=== PATIENT | female | born 1935 | race Caucasian/White ===

== ENCOUNTER 2025-01-19 08:38 | Observation (INO) | payer OTHER ==
[2025-01-19] MEDS ORDERED: ACETAMINOPHEN INJECTION 100 ML ONE (09:14)
[2025-01-19] MEDS: ACETAMINOPHEN 1000 MG/100 ML BAG IVPB ONE (09:20)
[2025-01-19 09:33] LABS: BASO % 0.6 % (0-2.0); EOS % 0.8 % (0-4.5); HEMATOCRIT 30.3 % (32.4-45.2); HEMOGLOBIN 9.8 GM/dL (10.7-15.3); MCH 25.7 pg (25.7-33.7); MCHC 32.4 g/dl (32.0-36.0); MEAN CELL VOLUME 79.2 fl (80-96); MEAN PLT VOLUME 6.7 fl (7.5-11.1); MONO % 6.6 % (3.8-10.2); PLATELET COUNT 190 10^3/uL (134-434); RBC 3.83 M/mm3 (3.60-5.2); RDW 18.3 % (11.6-15.6); WHITE BLOOD COUNT 5.6 K/mm3 (4.0-10.0)
[2025-01-19 09:41] LABS: INR 1.11 (0.83-1.09); PROTHROMBIN TIME (PATIENT) 12.2 SEC (9.7-13.0)
[2025-01-19 09:44] LABS: ACTIVATED PTT 34.8 SECONDS (25.2-36.5)
[2025-01-19 10:59] LABS: ALBUMIN 3.2 g/dl (3.4-5.0); CALCIUM 8.2 mg/dL (8.5-10.1); CREATININE 0.8 mg/dL (0.55-1.3); POTASSIUM 3.5 mmol/L (3.5-5.1)
[2025-01-19 11:04] LABS: BILIRUBIN,TOTAL 0.4 mg/dL (0.2-1); TOT PROT 6.2 g/dl (6.4-8.2)
[2025-01-19 11:09] LABS: EPI CELLS 3 /uL (0-25.1); HYALINE CASTS 0 /uL (0-3.1); PH,URINE 5.5 (5.0-8.0); URINE APPEARANCE CLEAR; URINE BACTERIA 44 /uL (0-1359); URINE BILIRUBIN NEGATIVE (NEGATIVE); URINE COLOR YELLOW; URINE GLUCOSE (UA) NEGATIVE (NEGATIVE); URINE KETONE NEGATIVE (NEGATIVE); URINE LEUK ESTERASE NEGATIVE (NEGATIVE); URINE NITRITE NEGATIVE (NEGATIVE); URINE PROTEIN 1+ (NEGATIVE); URINE RBC 6 /uL (0-23.9); URINE UROBILINOGEN 0.2 mg/dL (0.2-1.0); URINE WBC 8 /uL (0-25.8)
[2025-01-19] MEDS: METOPROLOL TARTRATE 25 MG TABLET (FP) PO ONE (17:08)
[2025-01-19] MEDS: LOSARTAN POTASSIUM 25 MG TABLET PO ONE (17:08)
[2025-01-19] MEDS: levETIRAcetam 250 MG TABLET PO ONE (17:32)
[2025-01-19] MEDS: SENNOSIDES 8.8 MG/5 ML SYRUP PO SCH (21:59)
[2025-01-19] MEDS: ACETAMINOPHEN 500 MG TABLET (FP) PO PRN (21:59)
[2025-01-19] MEDS: APIXABAN 2.5 MG TABLET PO SCH (21:59)
[2025-01-19] MEDS: POLYETHYLENE GLYCOL (HEALTHYLAX) 3350 17 GM PACKET PO SCH (21:59)
[2025-01-19] MEDS: MELATONIN 5 MG TABLETS PO SCH (21:59)
[2025-01-19] MEDS: ATORVASTATIN CA 10 MG TABLET (FP) PO SCH (21:59)
[2025-01-19] MEDS ORDERED: PATIENT'S OWN MEDICATION (NON-FORMULARY) (Cyclosporine [Restasis] 1 EACH Droperette) OP SCH (22:00)
[2025-01-19] MEDS: LIDOCAINE PATCH REMOVAL MC SCH (22:07)
[2025-01-20] MEDS ORDERED: PATIENT'S OWN MEDICATION (NON-FORMULARY) (Pilocarpine Hcl [Pilocarpine Hcl] 5 MG Tablet) PO SCH (07:00)
[2025-01-20 07:21] LABS: POTASSIUM 3.3 mmol/L (3.5-5.1)
[2025-01-20 07:24] LABS: CALCIUM 8.4 mg/dL (8.5-10.1)
[2025-01-20 07:25] LABS: BLOOD UREA NITROGEN 17.4 mg/dL (7-18); MAGNESIUM 1.7 mg/dL (1.8-2.4)
[2025-01-20 07:27] LABS: CREATININE 0.8 mg/dL (0.55-1.3); PHOSPHOROUS 3.8 mg/dL (2.5-4.9)
[2025-01-20] MEDS: MAGNESIUM SULFATE IN WATER 2 GM/50 ML IVPB IVPB ONE (09:20)
[2025-01-20] MEDS: MAGNESIUM 1GM/D5W 100ML - 100 ML IVPB IVPB ONE (09:21)
[2025-01-20] MEDS: MAGNESIUM 2GM/50ML STERILE WATER IVPB IVPB ONE (09:43)
[2025-01-20] MEDS: LIDOCAINE 4% PATCH TP SCH (09:43)
[2025-01-20] MEDS: POTASSIUM CHLORIDE ORAL LIQUID 20 MEQ/15 ML PO ONE (09:43)
[2025-01-20] MEDS: VITAMINS A AND D TOPICAL OINTMENT TP SCH (09:44)
[2025-01-20] MEDS: SERTRALINE HCL 50 MG TABLET (FP) PO SCH (09:44)
[2025-01-20] MEDS: FAMOTIDINE 20 MG TABLET PO SCH (09:44)
[2025-01-20] MEDS: THIAMINE 100 MG TABLET PO SCH (09:44)
[2025-01-20] MEDS: METOPROLOL TARTRATE 25 MG TABLET (FP) PO SCH (09:44)
[2025-01-20] MEDS: NYSTATIN POWDER 100,000 UNITS/GM - 15 GM TOPICAL POWDER TP SCH (09:44)
[2025-01-20] MEDS: levETIRAcetam 250 MG TABLET PO SCH (09:44)
[2025-01-20] MEDS: FOLIC ACID 1 MG TABLET (FP) PO SCH (09:44)
[2025-01-21 07:12] LABS: BASO % 0.4 % (0-2.0); EOS % 1.7 % (0-4.5); HEMATOCRIT 28.2 % (32.4-45.2); HEMOGLOBIN 9.1 GM/dL (10.7-15.3); LYMPH % 34.1 % (8-40); MCH 25.8 pg (25.7-33.7); MCHC 32.1 g/dl (32.0-36.0); MEAN CELL VOLUME 80.3 fl (80-96); MEAN PLT VOLUME 7.2 fl (7.5-11.1); MONO % 10.2 % (3.8-10.2); NEUT % 53.6 % (42.8-82.8); PLATELET COUNT 189 10^3/uL (134-434); RBC 3.51 M/mm3 (3.60-5.2); RDW 18.5 % (11.6-15.6); WHITE BLOOD COUNT 3.7 K/mm3 (4.0-10.0)
[2025-01-21 07:21] LABS: POTASSIUM 4.3 mmol/L (3.5-5.1)
[2025-01-21 07:22] LABS: CALCIUM 8.5 mg/dL (8.5-10.1)
[2025-01-21 07:23] LABS: BLOOD UREA NITROGEN 26.3 mg/dL (7-18)
[2025-01-21 07:26] LABS: CREATININE 0.8 mg/dL (0.55-1.3)
[2025-01-21] MEDS: POTASSIUM CHLORIDE TABS 20 MEQ TABLET.ER (FP) PO ONE (11:06)
[2025-01-21 11:34] LABS: MAGNESIUM 2.1 mg/dL (1.8-2.4)
[2025-01-21 11:38] LABS: PHOSPHOROUS 3.6 mg/dL (2.5-4.9)
[2025-01-21 22:16] VITALS: BMI 19.0
[2025-01-24 07:32] LABS: BASO % 0.4 % (0-2.0); EOS % 2.5 % (0-4.5); HEMOGLOBIN 9.7 GM/dL (10.7-15.3); LYMPH % 28.1 % (8-40); MCH 25.9 pg (25.7-33.7); MCHC 32.4 g/dl (32.0-36.0); MEAN PLT VOLUME 7.2 fl (7.5-11.1); MONO % 10.1 % (3.8-10.2); NEUT % 58.9 % (42.8-82.8); PLATELET COUNT 171 10^3/uL (134-434); RBC 3.75 M/mm3 (3.60-5.2); RDW 18.8 % (11.6-15.6); WHITE BLOOD COUNT 3.9 K/mm3 (4.0-10.0)
[2025-01-24 07:55] LABS: POTASSIUM 4.5 mmol/L (3.5-5.1)
[2025-01-24 08:13] LABS: ALBUMIN 2.8 g/dl (3.4-5.0); BLOOD UREA NITROGEN 23.3 mg/dL (7-18); CALCIUM 8.8 mg/dL (8.5-10.1)
[2025-01-24 08:16] LABS: CREATININE 0.8 mg/dL (0.55-1.3)
[2025-01-24 08:18] LABS: BILIRUBIN,TOTAL 0.7 mg/dL (0.2-1); TOT PROT 6.1 g/dl (6.4-8.2)
[2025-01-24] MEDS ORDERED: PATIENT'S OWN MEDICATION (NON-FORMULARY) (Pilocarpine Hcl [Pilocarpine Hcl] 5 MG) PO SCH (16:00)
[2025-01-24] MEDS: LIDOCAINE PATCH REMOVAL MC SCH (21:45)
[2025-01-24] MEDS: APIXABAN 2.5 MG TABLET PO SCH (21:46)
[2025-01-24] MEDS: METOPROLOL TARTRATE 25 MG TABLET (FP) PO SCH (21:46)
[2025-01-24] MEDS: ATORVASTATIN CA 10 MG TABLET (FP) PO SCH (21:46)
[2025-01-24] MEDS: MELATONIN 5 MG TABLETS PO SCH (21:47)
[2025-01-24] MEDS: POLYETHYLENE GLYCOL (HEALTHYLAX) 3350 17 GM PACKET PO SCH (21:47)
[2025-01-24] MEDS: SENNOSIDES 8.8 MG/5 ML SYRUP PO SCH (21:47)
[2025-01-24] MEDS: levETIRAcetam 250 MG TABLET PO SCH (21:47)
[2025-01-24] MEDS ORDERED: PATIENT'S OWN MEDICATION (NON-FORMULARY) (Cyclosporine [Restasis] 1 EACH) OP SCH (22:00)
[2025-01-24] MEDS ORDERED: LIDOCAINE PATCH REMOVAL MC SCH (22:00)
[2025-01-25] MEDS: ACETAMINOPHEN 500 MG TABLET (FP) PO PRN (07:04)
[2025-01-25] MEDS: FAMOTIDINE 20 MG TABLET PO SCH (09:58)
[2025-01-25] MEDS: THIAMINE 100 MG TABLET PO SCH (09:58)
[2025-01-25] MEDS: FOLIC ACID 1 MG TABLET (FP) PO SCH (09:58)
[2025-01-25] MEDS: SERTRALINE HCL 50 MG TABLET (FP) PO SCH (09:58)
[2025-01-25] MEDS: LIDOCAINE 4% PATCH TP SCH (09:59)
[2025-01-25] MEDS: NYSTATIN POWDER 100,000 UNITS/GM - 15 GM TOPICAL POWDER TP SCH (12:40)
[2025-01-25] MEDS: VITAMINS A AND D TOPICAL OINTMENT TP SCH (12:41)
[2025-01-26 09:27] VITALS: RESP 18
[2025-01-26 14:11] VITALS: BP 128/59; PULSE 96; TEMP 98.4
== END 2025-01-26 14:37 | disposition home or self-care (01) ==
LOC: JER 08:38 → JERBED 15:32 → J4W 16:52 → J7W 01-24 12:47
PROVIDERS: ADMIT Internal Medicine; ATTEND Internal Medicine
PROC: 3E033GC Introduction of Other Therapeutic Substance into Peripheral Vein, Percutaneous Approach (ICD-10-PCS; principal; 2025-01-19)
DX: I48.91 Unspecified atrial fibrillation (principal); F03.90 Unspecified dementia, unspecified severity, without behavioral disturbance, psychotic disturbance, mood disturbance, and anxiety; M35.00 Sjogren syndrome, unspecified; G93.89 Other specified disorders of brain; E46 Unspecified protein-calorie malnutrition; R56.9 Unspecified convulsions; E87.6 Hypokalemia; W18.39XA Other fall on same level, initial encounter; Y93.89 Activity, other specified; Y92.091 Bathroom in other non-institutional residence as the place of occurrence of the external cause; Z88.0 Allergy status to penicillin; E78.5 Hyperlipidemia, unspecified; I10 Essential (primary) hypertension; D32.9 Benign neoplasm of meninges, unspecified
CPT/HCPCS: 36415; 70450-TC; 70553-TC; 71045-TC-FY; 71270-TC; 72125-TC; 72128-TC; 72131-TC; 72170-TC-FY; 74177-TC; 80048; 80053; 80177; 81003; 83735; 84100; 84484; 85025; 85610; 85730; 86850; 86900; 86901; 87086; 87635; 93005; 93010; 96374; 97116-GP; 97162-GP; 99285-25; G0378; J0131

== ENCOUNTER 2025-01-26 17:41 | Emergency (ER) | payer OTHER ==
[2025-01-26 18:22] VITALS: TEMP 98.1; BMI 26.4
[2025-01-26] MEDS ORDERED: ACETAMINOPHEN INJECTION 100 ML ONE (20:15)
[2025-01-26 20:16] LABS: ABSOLUTE IMMATURE GRANULOCYTES 0.03 x10^3/uL (0.0-0.031); BASOPHILS # 0.02 x10^3/uL (0.01-0.08); EOSINOPHIL % 0.4 % (0.7-5.8); EOSINOPHILS # 0.03 x10^3/uL (0.04-0.36); HEMOGLOBIN 10.3 g/dL (11.2-15.7); MCHC 30.3 g/dl (32.2-35.5); MEAN CELL VOLUME 83.3 fl (79.4-94.8); MEAN PLT VOLUME 9.4 fl (9.4-12.3); MONOCYTE # 0.44 x10^3/uL (0.24-0.86); PLATELET COUNT # 201 x10^3/uL (182-369); RDW 16.1 % (12.5-17.0)
[2025-01-26] MEDS: ACETAMINOPHEN 1000 MG/100 ML BAG IVPB ONE (20:19)
[2025-01-26 20:26] LABS: INR 1.23 (0.83-1.09); PROTHROMBIN TIME (PATIENT) 13.4 SEC (9.7-13.0)
[2025-01-26 20:29] LABS: ACTIVATED PTT 37.7 SECONDS (25.2-36.5)
[2025-01-26 20:38] LABS: POTASSIUM 4.7 mmol/L (3.5-5.1)
[2025-01-26 20:40] LABS: CALCIUM 8.8 mg/dL (8.5-10.1)
[2025-01-26 20:41] LABS: ALBUMIN 3.3 g/dl (3.4-5.0)
[2025-01-26 20:45] LABS: BILIRUBIN,TOTAL 0.5 mg/dL (0.2-1)
[2025-01-26 20:46] LABS: TOT PROT 7.1 g/dl (6.4-8.2)
[2025-01-26 23:05] LABS: EPI CELLS 36 /uL (0-25.1); HYALINE CASTS 0 /uL (0-3.1); PH,URINE 7.5 (5.0-8.0); URINE APPEARANCE CLEAR; URINE BACTERIA 32 /uL (0-1359); URINE BILIRUBIN NEGATIVE (NEGATIVE); URINE COLOR YELLOW; URINE GLUCOSE (UA) NEGATIVE (NEGATIVE); URINE KETONE NEGATIVE (NEGATIVE); URINE LEUK ESTERASE NEGATIVE (NEGATIVE); URINE NITRITE NEGATIVE (NEGATIVE); URINE PROTEIN 1+ (NEGATIVE); URINE RBC 13 /uL (0-23.9); URINE UROBILINOGEN 0.2 mg/dL (0.2-1.0)
[2025-01-26 23:30] LABS: URINE WBC 60.9 /uL (0-25.8)
[2025-01-26 23:34] VITALS: BP 115/57; PULSE 68; RESP 17
== END 2025-01-27 01:20 ==
LOC: JER 17:41
PROC: 3E033NZ Introduction of Analgesics, Hypnotics, Sedatives into Peripheral Vein, Percutaneous Approach (ICD-10-PCS; principal; 2025-01-26)
DX: K59.00 Constipation, unspecified (principal); H91.93 Unspecified hearing loss, bilateral; R51.9 Headache, unspecified
CPT/HCPCS: 36415; 70450-TC; 71045-TC-FY; 72125-TC; 72170-TC-FY; 80053; 81003; 84484; 85025; 85610; 85730; 86850; 86900; 86901; 87086; 93005; 93010; 96374; 99285-25; J0131

== ENCOUNTER 2025-01-28 21:06 | Observation (INO) | payer OTHER ==
[2025-01-28 22:56] LABS: ABSOLUTE IMMATURE GRANULOCYTES 0.02 x10^3/uL (0.0-0.031); BASOPHILS # 0.03 x10^3/uL (0.01-0.08); EOSINOPHIL % 1.5 % (0.7-5.8); EOSINOPHILS # 0.07 x10^3/uL (0.04-0.36); HEMATOCRIT 32.4 % (34.1-44.9); HEMOGLOBIN 9.9 g/dL (11.2-15.7); MCHC 30.6 g/dl (32.2-35.5); MEAN CELL VOLUME 84.6 fl (79.4-94.8); MEAN PLT VOLUME 9.2 fl (9.4-12.3); MONOCYTE % 11.1 % (4.7-12.5); PLATELET COUNT 219 x10^3/uL (182-369); RDW 15.9 % (12.5-17.0)
[2025-01-28 23:21] LABS: POTASSIUM 4.2 mmol/L (3.5-5.1)
[2025-01-28 23:23] LABS: ALBUMIN 3.4 g/dl (3.4-5.0); CALCIUM 8.7 mg/dL (8.5-10.1)
[2025-01-28 23:24] LABS: BLOOD UREA NITROGEN 19.9 mg/dL (7-18); MAGNESIUM 2.2 mg/dL (1.8-2.4)
[2025-01-28 23:27] LABS: CREATININE 1.1 mg/dL (0.55-1.3)
[2025-01-28 23:28] LABS: BILIRUBIN,TOTAL 0.4 mg/dL (0.2-1); TOT PROT 6.9 g/dl (6.4-8.2)
[2025-01-29 01:50] LABS: EPI CELLS 5 /uL (0-25.1); HYALINE CASTS 1 /uL (0-3.1); URINE APPEARANCE CLEAR; URINE BACTERIA 1696 /uL (0-1359); URINE BILIRUBIN NEGATIVE (NEGATIVE); URINE COLOR YELLOW; URINE GLUCOSE (UA) NEGATIVE (NEGATIVE); URINE KETONE NEGATIVE (NEGATIVE); URINE LEUK ESTERASE 3+ (NEGATIVE); URINE NITRITE NEGATIVE (NEGATIVE); URINE PROTEIN TRACE (NEGATIVE); URINE RBC 20 /uL (0-23.9); URINE UROBILINOGEN 0.2 mg/dL (0.2-1.0); URINE WBC 634 /uL (0-25.8)
[2025-01-29] MEDS ORDERED: CEFTRIAXONE 1 G/50 ML PREMIX 50 ML IVPB ONE (02:00)
[2025-01-29] MEDS: CEFTRIAXONE 1,000 MG in DEXTROSE 5%-WATER - 50 ML IVPB ONE (02:10)
[2025-01-29 05:27] VITALS: BMI 16.8
[2025-01-29] MEDS ORDERED: oxyCODONE HCL 5 MG TABLET PO PRN (06:59)
[2025-01-29] MEDS: levETIRAcetam 250 MG TABLET PO SCH (08:27)
[2025-01-29 09:07] LABS: ABSOLUTE IMMATURE GRANULOCYTES 0.01 x10^3/uL (0.0-0.031); BASOPHILS # 0.02 x10^3/uL (0.01-0.08); EOSINOPHIL % 2.8 % (0.7-5.8); EOSINOPHILS # 0.11 x10^3/uL (0.04-0.36); HEMATOCRIT 32.8 % (34.1-44.9); HEMOGLOBIN 10.1 g/dL (11.2-15.7); MCHC 30.8 g/dl (32.2-35.5); MEAN CELL VOLUME 84.1 fl (79.4-94.8); MEAN PLT VOLUME 9.4 fl (9.4-12.3); MONOCYTE # 0.36 x10^3/uL (0.24-0.86); MONOCYTE % 9.3 % (4.7-12.5); PLATELET COUNT 209 x10^3/uL (182-369); RDW 16.1 % (12.5-17.0)
[2025-01-29 09:34] LABS: POTASSIUM 4.2 mmol/L (3.5-5.1)
[2025-01-29 10:21] LABS: BLOOD UREA NITROGEN 18.4 mg/dL (7-18); CALCIUM 8.8 mg/dL (8.5-10.1)
[2025-01-29 10:25] LABS: CREATININE 0.9 mg/dL (0.55-1.3)
[2025-01-29] MEDS: SERTRALINE HCL 50 MG TABLET (FP) PO SCH (11:18)
[2025-01-29] MEDS: LOSARTAN POTASSIUM 25 MG TABLET PO SCH (11:18)
[2025-01-29] MEDS: METOPROLOL TARTRATE 25 MG TABLET (FP) PO SCH (11:18)
[2025-01-29] MEDS: FAMOTIDINE 20 MG TABLET PO SCH (11:18)
[2025-01-29] MEDS: FOLIC ACID 1 MG TABLET (FP) PO SCH (11:18)
[2025-01-29] MEDS: MELATONIN 5 MG TABLETS PO SCH (21:21)
[2025-01-29] MEDS: SENNOSIDES 8.6MG TABLET (FP) PO SCH (21:22)
[2025-01-29] MEDS: ATORVASTATIN CA 10 MG TABLET (FP) PO SCH (21:22)
[2025-01-29] MEDS: ACETAMINOPHEN 325 MG TABLET (FP) PO PRN (21:25)
[2025-01-30] MEDS: CEFTRIAXONE 1 G/50 ML PREMIX 50 ML IVPB SCH (10:13)
[2025-02-01 21:50] VITALS: RESP 18
[2025-02-01] MEDS: levETIRAcetam 250 MG TABLET PO SCH (22:22)
[2025-02-02 08:52] VITALS: BP 113/77; PULSE 70; TEMP 99
== END 2025-02-02 11:56 ==
LOC: JER 21:06 → JERBED 01-29 01:58 → J4S 01-29 05:16
PROVIDERS: ADMIT Hospitalist; ATTEND Internal Medicine
DX: N39.0 Urinary tract infection, site not specified (principal); I48.91 Unspecified atrial fibrillation; M35.00 Sjogren syndrome, unspecified; R29.6 Repeated falls; E78.5 Hyperlipidemia, unspecified; I10 Essential (primary) hypertension; W18.39XA Other fall on same level, initial encounter; Y93.89 Activity, other specified; D32.9 Benign neoplasm of meninges, unspecified; Y92.89 Other specified places as the place of occurrence of the external cause; K59.00 Constipation, unspecified; R56.9 Unspecified convulsions; Z88.0 Allergy status to penicillin
CPT/HCPCS: 0241U-QW; 36415; 70450-TC; 70486-TC; 71045-TC-FY; 72125-TC; 80048; 80053; 81003; 83735; 84484; 85025; 87086; 87186; 87635; 93005; 93010; 96365; 96366; 97116-GP; 97161-GP; 99285-25; G0378